=== PATIENT | female | born 1985 | race Asian ===

== ENCOUNTER 2019-07-22 03:58 | Emergency (ER) | payer OTHER ==
[~2019-07-22] VITALS: Ht 147.3 cm; Wt 54.4 kg
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
[2019-07-22 04:07] VITALS: BP 120/90
--- NOTE | 2019-07-22 04:16 | NUR ---
ED Nurse Note: pt was taken to have CT accompanied by analytical laboratory technician
[2019-07-22] MEDS ORDERED: IBUPROFEN600 MG ORAL (04:17)
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
--- NOTE | 2019-07-22 04:28 | NUR ---
ED Nurse Note: back from ct
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
[2019-07-22 04:46] VITALS: BP 118/79
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
== END 2019-07-22 04:46 | disposition home or self-care (01) ==
LOC: EMR 04:09
DX: S00.83XA Contusion of other part of head, initial encounter (principal); Y04.2XXA Assault by strike against or bumped into by another person, initial encounter; Y92.129 Unspecified place in nursing home as the place of occurrence of the external cause; Y99.0 Civilian activity done for income or pay
CPT/HCPCS: 70486; 99284